=== PATIENT | male | born 1980 | race Two or more races ===

== ENCOUNTER 2017-08-23 19:14 | Emergency (ER) | payer MEDICAID ==
[~2017-08-23] VITALS: Ht 170.2 cm; Wt 63.5 kg
[2017-08-23] MEDS ORDERED: Thiamine HCl 100 MG in D5W 55 ML IVPB ONE (19:15)
[2017-08-23 19:42] VITALS: BP 127/68
[2017-08-23 19:49] LABS: BASOPHILS % (AUTO) 1.3 % (0.0-2.0); EOSINOPHILS % (AUTO) 0.9 % (0.0-3.0); HEMATOCRIT 42.6 % (42.0-52.0); HEMOGLOBIN 14.9 G/DL (14.2-18.0); LYMPHOCYTES % (AUTO) 17.4 % (20.0-45.0); MEAN CORPUSCULAR VOLUME 86 FL (80-99); MONOCYTES % (AUTO) 11.4 % (1.0-10.0); NEUTROPHILS % (AUTO) 69.1 % (45.0-75.0); PLATELET COUNT 296 K/UL (150-450); RED BLOOD COUNT 4.98 M/UL (4.70-6.10); RED CELL DISTRIBUTION WIDTH 11.2 % (11.6-14.8); WHITE BLOOD COUNT 11.7 K/UL (4.8-10.8)
[2017-08-23 20:06] LABS: ANION GAP 11 mmol/L (5-15); BLOOD UREA NITROGEN 6 mg/dL (7-18); CALCIUM 8.3 MG/DL (8.5-10.1); CARBON DIOXIDE 29 MMOL/L (21-32); CHLORIDE 103 MMOL/L (98-107); CREATININE 1.1 MG/DL (0.55-1.30); POTASSIUM 3.8 MMOL/L (3.5-5.1); SODIUM 143 MMOL/L (136-145)
[2017-08-23 20:09] LABS: ALANINE AMINOTRANSFERASE 51 U/L (12-78); ALBUMIN 4.2 G/DL (3.4-5.0); ALBUMIN/GLOBULIN RATIO 1.2 (1.0-2.7); ALKALINE PHOSPHATASE 104 U/L (46-116); ASPARTATE AMINO TRANSFERASE 68 U/L (15-37); BILIRUBIN,TOTAL 0.8 MG/DL (0.2-1.0)
--- NOTE | 2017-08-23 20:27 | Emergency Room Report ---
History of Present Illness General Chief Complaint: Altered Level of Consciousness Source: Patient (Rafa Lua MD) Present Illness HPI Patient is approximately 39-year-old male brought in by EMS after increased altered mental status. The patient was noted to have the EKG leads attached to his chest. The patient noted have empty bottle of vodka near where he was lying. The patient was brought in by EMS. History is markedly limited by patient's mental status. (Rafa Lua MD) Allergies: Coded Allergies: UNABLE TO ASSESS (Unverified , 08/23/17) Patient History Past Medical History: see triage record Reviewed Nursing Documentation: PMH: Agreed; PSxH: Agreed (Rafa Lua MD) Nursing Documentation-PMH Past Medical History Deferred: Pt Cognitively Impaired (Rafa Lua MD) Review of Systems All Other Systems: negative except mentioned in HPI (Rafa Lua MD) Physical Exam Vital Signs Date Time Temp Pulse Resp B/P (MAP) Pulse Ox O2 Delivery O2 Flow Rate FiO2 08/23/17 19:06 97.6 85 17 130/84 96 Room Air 97.5 Sp02 EP Interpretation: reviewed, normal General Appearance: normal inspection, well appearing, no apparent distress, alert, GCS 15, Chronically Ill Head: atraumatic ENT: normal ENT inspection, hearing grossly normal, normal pharynx, normal voice Neck: normal inspection, full range of motion, supple, no bony tend Respiratory: normal inspection, lungs clear, normal breath sounds, no respiratory distress, no retraction, no wheezing Cardiovascular #1: regular rate, rhythm, no edema Gastrointestinal: normal inspection, normal bowel sounds, non tender, soft, no guarding, no hernia Genitourinary: no CVA tenderness Musculoskeletal: normal inspection, back normal, normal range of motion Neurologic: normal inspection, alert, oriented x3, responsive, hot 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 (Rafa Lua MD) Medical Decision Making Diagnostic Impression: Primary Impression: Altered level of consciousness Additional Impression: Alcohol intoxication ER Course Patient presented for altered mental status. Differential diagnosis included but was not limited to ischemic stroke, subarachnoid hemorrhage, hypoglycemia, spinal cord injury, neurodegenerative disorder, urinary tract infection, hypoxemia.Because of complexity of patient's case laboratory testing and imaging studies were ordered.CT the head read by radiology showedNo evidence of acute cranial hemorrhage or fracture. The patient noted have gradually improving mental status. Patient given IV thiamine as well as IV fluids.The laboratory testing was notable for marked markedly elevated blood alcohol level.Patient was endorsed to Dr. Dennis the pending sobering. Labs Test 08/23/17 19:29 White Blood Count 11.7 K/UL (4.8-10.8) Red Blood Count 4.98 M/UL (4.70-6.10) Hemoglobin 14.9 G/DL (14.2-18.0) Hematocrit 42.6 % (42.0-52.0) Mean Corpuscular Volume 86 FL (80-99) Mean Corpuscular Hemoglobin 30.0 PG (27.0-31.0) Mean Corpuscular Hemoglobin Concent 35.0 G/DL (32.0-36.0) Red Cell Distribution Width 11.2 % (11.6-14.8) Platelet Count 296 K/UL (150-450) Mean Platelet Volume 6.3 FL (6.5-10.1) Neutrophils (%) (Auto) 69.1 % (45.0-75.0) Lymphocytes (%) (Auto) 17.4 % (20.0-45.0) Monocytes (%) (Auto) 11.4 % (1.0-10.0) Eosinophils (%) (Auto) 0.9 % (0.0-3.0) Basophils (%) (Auto) 1.3 % (0.0-2.0) Prothrombin Time 10.2 SEC (9.30-11.50) Prothromb Time International Ratio 1.0 (0.9-1.1) Sodium Level 143 MMOL/L (136-145) Potassium Level 3.8 MMOL/L (3.5-5.1) Chloride Level 103 MMOL/L (98-107) Carbon Dioxide Level 29 MMOL/L (21-32) Anion Gap 11 mmol/L (5-15) Blood Urea Nitrogen 6 mg/dL (7-18) Creatinine 1.1 MG/DL (0.55-1.30) Estimat Glomerular Filtration Rate > 60 mL/min (>60) Glucose Level 123 MG/DL (74-106) Calcium Level 8.3 MG/DL (8.5-10.1) Total Bilirubin 0.8 MG/DL (0.2-1.0) Aspartate Amino Transf (AST/SGOT) 68 U/L (15-37) Alanine Aminotransferase (ALT/SGPT) 51 U/L (12-78) Alkaline Phosphatase 104 U/L (46-116) Total Protein 7.7 G/DL (6.4-8.2) Albumin 4.2 G/DL (3.4-5.0) Globulin 3.5 g/dL Albumin/Globulin Ratio 1.2 (1.0-2.7) Lipase 102 U/L (73-393) (Rafa Lua MD) ER Course This patient presents with acute alcoholic intoxication. The patient's laboratory workup was noncontributory other than an elevated EtOH and transaminitis. There is no evidence of trauma or injury on physical examination of this patient. The patient was allowed to sober up in the emergency department and was able to ambulate and articulate desire to go home. The patient was clinically sober at the time of discharge. No acute emergency medical condition is identified. The patient was educated on the dangers of alcohol intoxication and abuse. The patient was given a list of the local rehabilitation clinics. (Dottie Elliott DO) Last Vital Signs Date Time Temp Pulse Resp B/P (MAP) Pulse Ox O2 Delivery O2 Flow Rate FiO2 08/23/17 19:42 97.8 111 16 127/68 96 Room Air 97.8 Status: improved (Rafa Lua MD) Disposition: HOME, SELF-CARE Condition: Stable Referrals: NOT CHOSEN IPA/,REFERRING (PCP) Rafa Lua MD Aug 23, 2017 20:27 Dottie Elliott DO Aug 24, 2017 09:00
[2017-08-23 21:40] VITALS: BP 125/70
[2017-08-23] MEDS ORDERED: Thiamine HCl 100mg/ml 2 ml Inj ONE (21:54)
[2017-08-24 00:05] VITALS: BP 138/78
[2017-08-24] MEDS ORDERED: LORazepam Inj 2mg/ml 1ml IV ONE (01:30)
[2017-08-24 02:21] VITALS: BP 127/70
[2017-08-24 03:34] VITALS: BP 130/78
[2017-08-24 05:23] VITALS: BP 127/68
[2017-08-24 06:59] VITALS: BP 127/72
--- NOTE | 2017-08-24 08:31 | Diagnostic Imaging Report ---
Indication: Altered mental status, intoxication Technique: Continuous helical CT scanning of the head was performed utilizing automated exposure control without intravenous contrast material. Axial and coronal reconstructions were obtained. Comparison: None CT dose: Total DLP 1530.68 mGycm; CTDI vol 70.38 mGy Findings: There is no acute intracranial hemorrhage, midline shift, mass effect or cortical edema. The ventricles, cisterns and sulci are within normal limits for age. Mastoid air cells are clear. There is mild mucosal thickening in the paranasal sinuses with a mucous retention cyst versus polyp in the left maxillary sinus. No focal lesions of the bony calvarium or soft tissues of the scalp are seen. IMPRESSION: No evidence of acute intracranial hemorrhage, mass effect or cortical edema. MRI may be obtained for more sensitive evaluation as clinically indicated. Paranasal sinus disease. This corresponds with the statrad preliminary report. The CT scanner at [facility] is accredited by the [employer] and the scans are performed using protocols designed to limit radiation exposure to as low as reasonably achievable to attain images of sufficient resolution adequate for diagnostic evaluation.
[2017-08-24 09:17] VITALS: BP 132/77
== END 2017-08-24 09:18 | disposition home or self-care (01) ==
LOC: EDSEX 19:14 → EDBD 19:14 → EMR 19:43 → EDBD 19:43 → EMR 08-24 09:18
DX: R41.82 Altered mental status, unspecified (principal); F10.129 Alcohol abuse with intoxication, unspecified
CPT/HCPCS: 36415; 70450; 80053; 80307; 80329; 83690; 85025; 85610; 96360; 96365; 96374; 96375; 99284